=== PATIENT | female | born 1995 | race Caucasian/White ===

== ENCOUNTER 2016-12-01 15:09 | Emergency (ER) | payer BC ==
[~2016-12-01] VITALS: Ht 147.3 cm; Wt 63.4 kg
[~2016-12-01 15:09] MED LIST: AMPH10TA2 PO; BCPILLS PO; MULT-513 PO
[2016-12-01 15:24] VITALS: TEMP 36.7; Ht 147.3 cm; Wt 63.4 kg
--- NOTE | 2016-12-01 16:20 | DIAGNOSTIC IMAGING REPORT ---
LEFT ANKLE MIN 3 VIEWS ROUTINE CLINICAL HISTORY: left ankle/achillis pain pain COMPARISON: None. DISCUSSION: The bones and joint spaces appear intact. There is no evidence of fracture, dislocation or bony disease. There is no evidence for soft tissue swelling. IMPRESSION: Negative study. Electronically signed by: Ronaldo Alaniz M.D. 12/01/2016 4:19 PM Dictated Date/Time: 12/01/2016 4:18 PM
[2016-12-01 17:26] VITALS: BP 119/54; PULSE 82; O2SAT 97
--- NOTE | 2016-12-01 21:35 | EMERGENCY ROOM VISIT NOTE ---
ED Visit Note First contact with patient: 15:33 CHIEF COMPLAINT: Ankle pain HISTORY OF PRESENT ILLNESS: This 21-year-old female patient presents to the emergency department with complaint of left ankle/Achilles tendon pain worsening over the past one day. The patient does not recall a distinct injury or trauma, but she has had tendinitis in the past. She has followed up with orthopedics back home, and at one point was in a walking boot for several weeks. The patient complains of pain along the posterior and outside of the ankle. The patient does not have pain of the foot. The patient rates the pain as dull and 5/10. The patient is not able to bear weight on the foot. Constant pain, worse with movement, weight bearing, and the dependent position. No knee pain, the patient is able to move their toes. No numbness or weakness of the foot, no laceration. REVIEW OF SYSTEMS: A 6 system review of systems was completed with positives and pertinent negatives listed in the HPI. ALLERGIES: See EMR MEDICATIONS: See EMR PMH: History of Achilles tendinitis in the past SOCIAL HISTORY: Student and lives locally PHYSICAL EXAM: Vital Signs: Reviewed Nurse's notes, vital signs stable. GENERAL : White female, no acute distress, but appears in pain, well-developed, well- nourished. MENTAL STATUS: Alert, oriented to person place and time, and cooperative. MUSCULOSKELETAL: The left ankle is minimally swollen and tender over the lateral malleolus, but the skin is intact and there is no ligamentous instability. There is tenderness of the posterior ankle in the distribution of the Achilles. Patient does have increased tenderness with plantar flexion. There is no fifth metatarsal tenderness. There is no tenderness over the rest of the foot. There is no calf or tibia/fibular tenderness. There is no visual deformity. The foot and toes are warm and well-perfused. Dorsalis pedis pulse 2+. Sensation to pain and light touch is intact. Capillary refill less than 2 seconds. LEFT ANKLE MIN 3 VIEWS ROUTINE CLINICAL HISTORY: left ankle/achillis pain pain COMPARISON: None. DISCUSSION: The bones and joint spaces appear intact. There is no evidence of fracture, dislocation or bony disease. There is no evidence for soft tissue swelling. IMPRESSION: Negative study. EMERGENCY DEPARTMENT COURSE: Physical exam and history were performed. Nursing notes and EMR were reviewed. The patient appears to have pain of the back and outside of her left ankle. X-ray was obtained and does not show evidence of acute abnormality. Clinically she is felt to have an Achilles tendinitis. The patient will be placed in an Ortho-Glass splint and given crutches. She will follow with orthopedics locally and she is here for school. She was given additional discharge instructions as below and was pleased with plan of care. Problem List Medical Problems: (1) Asthma Status: Chronic (2) Pneumonia Status: Resolved (3) Sacroiliac joint pain Status: Resolved Surgical Problems: (1) S/P T&A (status post tonsillectomy and adenoidectomy) Status: Resolved Current/Historical Medications Scheduled Amphetamine-Dextroamphetamine 10MG (Adderall 10MG), 10 MG PO BID Control Pills ( Control Pills), 1 TAB PO DAILY Allergies Coded Allergies: Albuterol (Verified Allergy, Unknown, HALLUCINATING, 12/01/16) Dust (Verified Allergy, Unknown, SNEEZING, 12/01/16) Grass (Verified Allergy, Unknown, HIVES, 12/01/16) [place] Tree (Verified Allergy, Unknown, ITCHING, 12/01/16) Vital Signs Date Time Temp Pulse Resp B/P Pulse Ox O2 Delivery O2 Flow Rate FiO2 12/01/16 17:26 82 16 119/54 97 12/01/16 15:24 36.7 93 18 125/79 98 Room Air Departure Information Impression Primary Impression: Achilles tendinitis Dispostion Home / Self-Care Condition GOOD Referrals [facility] (PCP) Sotero Macedo D.O. Forms HOME CARE DOCUMENTATION FORM, IMPORTANT VISIT INFORMATION Patient Instructions [facility], ED Compartment Syndrome At Risk For Additional Instructions You were seen and evaluated today on an emergency basis only. This is not a substitute for, or an effort to provide, complete comprehensive medical care. It is not possible to recognize and treat all injuries or illnesses in a single emergency department visit. For this reason it is recommended that you followup with [facility] , Dr. Macedo's office by telephone tomorrow to arrange a follow-up visit this week. For baseline pain relief you may alternate ibuprofen and acetaminophen every 4 hours for pain control. Take 600 mg ibuprofen (Advil) and then 4 hours later take 1000 mg acetaminophen (Tylenol). Do not take more than 3000 mg acetaminophen in a single day. Wear your splint and use your crutches until otherwise instructed by orthopedics. Do not get the splint wet. You are welcome to return to the emergency department anytime with new, worsening, or concerning symptoms.
== END 2016-12-01 17:36 | disposition home or self-care (01) ==
LOC: C.EDB 15:10 → C.EDD 17:36
DX: M76.62 Achilles tendinitis, left leg (principal)